=== PATIENT | female | born 1985 | race African-American/Black ===

== ENCOUNTER 2018-07-23 03:18 | Emergency (ER) | payer MEDICAID ==
[~2018-07-23] VITALS: Ht 180.3 cm; Wt 130.0 kg
[2018-07-23 03:31] VITALS: Ht 180.3 cm; Wt 130.0 kg
[2018-07-23 04:18] LABS: BASOPHILS 0.4 % (0-2); EOSINOPHILS 3.8 % (0-7); HEMOGLOBIN 12.5 g/dL (12-16); LYMPHOCYTES 29.4 % (15-50); MCHC 33.8 g/dL (31.0-37.0); MCV 85.8 fL (80.0-100.0); MEAN PLATELET VOLUME 11.1 fL (7.4-10.4); MONOCYTES 16.7 % (2-11); NEUTROPHILS 49.7 % (40-80); PLATELET COUNT 180 10x3/uL (130-400); RBC 4.31 10x6/uL (4.00-5.40); RDW 13.5 % (11.5-14.5); WBC 4.7 10x3/uL (4.8-10.8)
[2018-07-23 04:34] LABS: ALBUMIN 2.4 g/dL (3.4-5.0); ALKALINE PHOSPHATASE 128 U/L (46-116); ALT (SGPT) 60 U/L (10-68); BILIRUBIN - TOTAL 0.12 mg/dL (0.2-1.3); CALC OSMOLALITY 280 mosm/kg (275-300); CALCIUM 7.7 mg/dL (8.5-10.1); CHLORIDE - SERUM 111 mmol/L (98-107); CREATININE - SERUM 0.9 mg/dL (0.6-1.3); GLUCOSE 108 mg/dL (74-106); POTASSIUM - SERUM 3.6 mmol/L (3.5-5.1); PROTEIN - SERUM 5.6 g/dL (6.4-8.2); SODIUM 141 mmol/L (136-145); UREA NITROGEN 11 mg/dL (7-18); eGFR NON AFRICAN AMERICAN 76 mL/min (90-120)
[2018-07-23 04:38] LABS: HCG SERUM NEGATIVE (NEGATIVE)
[2018-07-23 04:45] LABS: CKMB 0.4 U/L (0.0-3.6); CREATINE KINASE 54 UL (21-215)
[2018-07-23 04:46] LABS: TROPONIN-I < 0.017 ng/mL (0.000-0.060)
[2018-07-23] MEDS ORDERED: NAPROSYN500 MG PO (05:50)
[2018-07-23 06:10] VITALS: BP 135/97
== END 2018-07-23 06:11 | disposition home or self-care (01) ==
LOC: D.ER 03:18
PROVIDERS: Family Medicine
DX: R07.9 Chest pain, unspecified (principal); M94.0 Chondrocostal junction syndrome [Tietze]; R06.02 Shortness of breath; F17.200 Nicotine dependence, unspecified, uncomplicated

== ENCOUNTER 2019-02-13 21:02 | Emergency (ER) | payer MEDICAID ==
[~2019-02-13 21:02] MED LIST: NAPROSYN500 MG PO
[2019-02-13 21:07] VITALS: Ht 180.3 cm
[2019-02-13 21:19] LABS: BASOPHILS 0.2 % (0-2); EOSINOPHILS 1.8 % (0-7); HEMATOCRIT 36.5 % (36.0-48.0); HEMOGLOBIN 12.7 g/dL (12-16); IMMATURE GRANULOCYTES 0.2 % (0-5); LYMPHOCYTES 29.2 % (15-50); MCH 28.6 pg (26.0-34.0); MCHC 34.8 g/dL (31.0-37.0); MCV 82.2 fL (80.0-100.0); MEAN PLATELET VOLUME 10.9 fL (7.4-10.4); MONOCYTES 12.9 % (2-11); NEUTROPHILS 55.7 % (40-80); RBC 4.44 10x6/uL (4.00-5.40); RDW 12.7 % (11.5-14.5)
[2019-02-13 21:27] LABS: PLATELET COUNT 219 10x3/uL (130-400)
[2019-02-13 21:50] LABS: APPEARANCE CLEAR (CLEAR); BILIRUBIN NEGATIVE (NEGATIVE); COLOR YELLOW (YELLOW); GLUCOSE NEGATIVE (NEGATIVE); KETONE LARGE mg/dL (NEGATIVE); NITRITE NEGATIVE (NEGATIVE); PROTEIN TRACE mg/dL (NEGATIVE); UROBILINOGEN NORMAL (NORMAL)
[2019-02-13 21:50] LABS: ALBUMIN 3.5 g/dL (3.4-5.0); ALKALINE PHOSPHATASE 101 U/L (46-116); ALT (SGPT) 21 U/L (10-68); BILIRUBIN - TOTAL 0.26 mg/dL (0.2-1.3); CALC OSMOLALITY 274 mosm/kg (275-300); CALCIUM 8.8 mg/dL (8.5-10.1); CARBON DIOXIDE 25.7 mmol/L (21.0-32.0); CHLORIDE - SERUM 102 mmol/L (98-107); CREATININE - SERUM 0.9 mg/dL (0.6-1.3); GLUCOSE 100 mg/dL (74-106); POTASSIUM - SERUM 3.3 mmol/L (3.5-5.1); PROTEIN - SERUM 7.8 g/dL (6.4-8.2); SODIUM 138 mmol/L (136-145); UREA NITROGEN 11 mg/dL (7-18); eGFR NON AFRICAN AMERICAN 76 mL/min (90-120)
[2019-02-13 21:53] LABS: BACTERIA MODERATE /hpf (NONE SEEN); EPITHELIAL CELLS 0-5 /hpf (0-5); MUCUS >1+ /lpf (NONE SEEN); RED CELLS - URINE 0-5 /hpf (0-5); WHITE CELLS - URINE 0-5 /hpf (0-5)
[2019-02-13] MEDS ORDERED: PHENERGAN25 M1 PO (22:29)
[2019-02-13 22:52] VITALS: BP 117/81
== END 2019-02-13 22:31 | disposition home or self-care (01) ==
LOC: D.ER 21:02
PROVIDERS: Family Medicine
DX: O21.9 Vomiting of pregnancy, unspecified (principal); Z3A.01 Less than 8 weeks gestation of pregnancy

== ENCOUNTER 2021-02-22 18:45 | Emergency (ER) | payer MEDICAID ==
[~2021-02-22] VITALS: Ht 180.3 cm; Wt 125.5 kg
[~2021-02-22 18:45] MED LIST changes: +MACROBID100 MG PO; +PHENERGAN25 M1 PO
[2021-02-22 19:00] VITALS: Ht 180.3 cm; Wt 125.5 kg
[2021-02-22 19:36] LABS: BASOPHILS 0.2 % (0-2); EOSINOPHILS 2.1 % (0-7); HEMATOCRIT 30.9 % (36.0-48.0); HEMOGLOBIN 10.6 g/dL (12-16); IMMATURE GRANULOCYTES 0.2 % (0-5); LYMPHOCYTE ABS# 1.35 10x3/uL (1.18-3.74); LYMPHOCYTES 23.4 % (15-50); MCH 29.5 pg (26.0-34.0); MCHC 34.3 g/dL (31.0-37.0); MCV 86.1 fL (80.0-100.0); MEAN PLATELET VOLUME 10.6 fL (7.4-10.4); NEUTROPHIL ABS# 3.59 10x3/uL (1.56-6.13); NEUTROPHILS 62.1 % (40-80); PLATELET COUNT 169 10x3/uL (130-400); RBC 3.59 10x6/uL (4.00-5.40); RDW 13.5 % (11.5-14.5); WBC 5.8 10x3/uL (4.8-10.8)
[2021-02-22 19:49] LABS: BILIRUBIN NEGATIVE (NEGATIVE); KETONE MODERATE mg/dL (NEGATIVE); NITRITE NEGATIVE (NEGATIVE); UROBILINOGEN NORMAL mg/dL (< 2)
[2021-02-22 19:50] LABS: SQUAMOUS EPITHELIAL 0-5 HPF (0-4); WHITE CELLS - URINE 0-5 HPF (0-4)
[2021-02-22 19:51] LABS: BACTERIA FEW HPF (NONE SEEN)
[2021-02-22 19:52] LABS: CALC OSMOLALITY 272 mosm/kg (275-300); CALCIUM 8.6 mg/dL (8.5-10.1); CARBON DIOXIDE 24.3 mmol/L (21.0-32.0); CHLORIDE - SERUM 106 mmol/L (98-107); CREATININE - SERUM 0.8 mg/dL (0.6-1.3); GLUCOSE 86 mg/dL (74-106); POTASSIUM - SERUM 3.3 mmol/L (3.5-5.1); SODIUM 138 mmol/L (136-145); UREA NITROGEN 7 mg/dL (7-18); eGFR NON AFRICAN AMERICAN 86 mL/min (90-120)
[2021-02-22 20:00] LABS: ALBUMIN 2.7 g/dL (3.4-5.0); ALKALINE PHOSPHATASE 64 U/L (30-120); ALT (SGPT) 14 U/L (10-68); AMYLASE - SERUM 48 U/L (25-115); BILIRUBIN - TOTAL 0.15 mg/dL (0.2-1.3); LIPASE 49 U/L (73-393); PROTEIN - SERUM 6.4 g/dL (6.4-8.2)
[2021-02-23 00:15] VITALS: BP 119/80
== END 2021-02-23 00:15 | disposition home or self-care (01) ==
LOC: D.ER 18:45
PROVIDERS: Family Medicine
DX: O26.892 Other specified pregnancy related conditions, second trimester (principal); R10.31 Right lower quadrant pain; E86.0 Dehydration; Z3A.21 21 weeks gestation of pregnancy

== ENCOUNTER 2021-03-29 16:29 | Outpatient (CLI) | payer MEDICAID ==
[~2021-03-29] VITALS: Ht 180.3 cm; Wt 123.6 kg
[2021-03-29 16:44] VITALS: Ht 180.3 cm; Wt 123.6 kg
[2021-03-29 17:26] LABS: CALC OSMOLALITY 276 mosm/kg (275-300); CALCIUM 8.8 mg/dL (8.5-10.1); CARBON DIOXIDE 27.2 mmol/L (21.0-32.0); CHLORIDE - SERUM 105 mmol/L (98-107); CREATININE - SERUM 0.8 mg/dL (0.6-1.3); GLUCOSE 94 mg/dL (74-106); POTASSIUM - SERUM 3.1 mmol/L (3.5-5.1); SODIUM 140 mmol/L (136-145); UREA NITROGEN 8 mg/dL (7-18); eGFR NON AFRICAN AMERICAN 86 mL/min (90-120)
[2021-03-29 17:34] LABS: BASOPHILS 0.2 % (0-2); EOSINOPHILS 1.9 % (0-7); HEMATOCRIT 32.3 % (36.0-48.0); HEMOGLOBIN 10.9 g/dL (12-16); IMMATURE GRANULOCYTES 0.2 % (0-5); LYMPHOCYTES 16.7 % (15-50); MCH 29.5 pg (26.0-34.0); MCHC 33.7 g/dL (31.0-37.0); MCV 87.3 fL (80.0-100.0); MEAN PLATELET VOLUME 11.9 fL (7.4-10.4); MONOCYTES 10.4 % (2-11); NEUTROPHILS 70.6 % (40-80); PLATELET COUNT 183 10x3/uL (130-400); RDW 13.3 % (11.5-14.5); WBC 5.4 10x3/uL (4.8-10.8)
[2021-03-29 17:53] LABS: ALBUMIN 2.7 g/dL (3.4-5.0); ALKALINE PHOSPHATASE 83 U/L (30-120); ALT (SGPT) 14 U/L (10-68); BILIRUBIN - TOTAL 0.19 mg/dL (0.2-1.3); HCG - QUANTITATIVE (MATERNAL) 13284 mIU/mL; PROTEIN - SERUM 6.8 g/dL (6.4-8.2)
[2021-03-29 18:10] LABS: BILIRUBIN NEGATIVE (NEGATIVE); KETONE SMALL mg/dL (NEGATIVE); NITRITE NEGATIVE (NEGATIVE); UROBILINOGEN NORMAL mg/dL (< 2)
[2021-03-29 18:12] LABS: WHITE CELLS - URINE 0-5 HPF (0-4)
[2021-03-29 18:13] LABS: BACTERIA FEW HPF (NONE SEEN); SQUAMOUS EPITHELIAL 0-5 HPF (0-4)
[2021-03-29 20:16] VITALS: BP 144/93
== END 2021-03-29 23:22 | disposition home or self-care (01) ==
LOC: D.ER 16:29 → D.LDO 16:29 → EDSTATUS 20:18 → D.LDO 23:22
PROVIDERS: Emergency Medicine; ATTEND Obstetrics & Gynecology
DX: O26.899 Other specified pregnancy related conditions, unspecified trimester (principal)

== ENCOUNTER 2021-05-26 15:15 | Outpatient (CLI) | payer MEDICAID ==
[2021-03-29 16:44] VITALS: BMI 38.0
[2021-05-26 15:25] VITALS: BP 128/78
[2021-05-31] MEDS ORDERED: REGLAN10 MG PO (17:27)
[2021-05-31] MEDS ORDERED: FAMOTIDINE10 MG PO (17:27)
[2021-05-31] MEDS ORDERED: CEPHALEXIN500 M1 PO (17:28)
== END 2021-05-26 15:40 | disposition home or self-care (01) ==
LOC: D.LDO 15:15
PROVIDERS: ATTEND Obstetrics & Gynecology
DX: O36.5990 Maternal care for other known or suspected poor fetal growth, unspecified trimester, not applicable or unspecified (principal)